=== PATIENT | male | born 1975 | race Caucasian/White ===

== ENCOUNTER 2016-12-28 12:06 | Emergency (ER) | payer OTHER ==
[~2016-12-28] VITALS: Ht 180.3 cm; Wt 84.9 kg
[2016-12-28 12:06] VITALS: BP 109/61
[~2016-12-28 12:06] MED LIST: /DULO30CA; GABA600T3; SERO200T
[2016-12-28] MEDS ORDERED: IBUP-1022 PO (12:17)
[2016-12-28] MEDS ORDERED: NEUR600T PO (12:27)
== END 2016-12-28 12:37 | disposition home or self-care (01) ==
LOC: M ED 12:06
DX: Z76.0 Encounter for issue of repeat prescription (principal); M54.5 Low back pain; Z72.0 Tobacco use

== ENCOUNTER → 2016-12-29 | Outpatient (CLI) | payer MEDICAID ==
[~2016-12-29] MED LIST changes: +IBUP-1022 PO; +NEUR600T PO
== END ==
LOC: M OUTALCOH 08:06
PROVIDERS: ATTEND Psychiatry & Neurology Psychiatry
DX: Z13.9 Encounter for screening, unspecified (principal); F12.20 Cannabis dependence, uncomplicated; F11.20 Opioid dependence, uncomplicated

== ENCOUNTER 2017-01-26 14:00 | Outpatient (RCR) | payer MEDICAID | END 2017-01-28 | LOC: M OUTALCOH 14:00 | PROVIDERS: ATTEND Psychiatry & Neurology Psychiatry | DX: F12.20 Cannabis dependence, uncomplicated (principal); F11.20 Opioid dependence, uncomplicated; F17.200 Nicotine dependence, unspecified, uncomplicated ==

== ENCOUNTER → 2017-01-27 | Outpatient (REF) | payer MEDICAID ==
[2017-02-01 16:08] LABS: MISCELLANEOUS TEST LAB See Separate Report
[2017-02-07 00:06] LABS: BENZODIAZEPINES, URINE SCREEN Negative ng/mL (Cutoff=200); METHADONE, URINE SCREEN Negative ng/mL (Cutoff=300); URINE NORBUPRENORPHINE Positive (.); URINE NORBUPRENORPHINE CONFIRM 58 ng/mL (Cutoff=10); pH, URINE 5.6 (4.5-8.9)
== END ==
LOC: M LAB REF 11:12
PROVIDERS: ATTEND Family Medicine Addiction Medicine
DX: F11.10 Opioid abuse, uncomplicated (principal)

== ENCOUNTER → 2017-02-03 | Outpatient (REF) | payer MEDICAID | LOC: M LAB REF 16:31 | PROVIDERS: ATTEND Family Medicine Addiction Medicine | DX: F11.10 Opioid abuse, uncomplicated (principal) ==

== ENCOUNTER → 2017-02-10 | Outpatient (REF) | payer MEDICAID ==
[2017-02-18 00:06] LABS: BENZODIAZEPINES, URINE SCREEN Negative ng/mL (Cutoff=200); METHADONE, URINE SCREEN Negative ng/mL (Cutoff=300); NALOXONE RESULT Positive (.); URINE NORBUPRENORPHINE Positive (.); URINE NORBUPRENORPHINE CONFIRM 80 ng/mL (Cutoff=10)
== END ==
LOC: M LAB REF 16:16
PROVIDERS: ATTEND Family Medicine Addiction Medicine
DX: F11.10 Opioid abuse, uncomplicated (principal)

== ENCOUNTER → 2017-03-10 | Outpatient (REF) | payer MEDICAID | LOC: M LAB REF 16:21 | PROVIDERS: ATTEND Family Medicine Addiction Medicine | DX: F11.10 Opioid abuse, uncomplicated (principal) ==

== ENCOUNTER → 2017-03-24 | Outpatient (REF) | payer MEDICAID | LOC: M LAB REF 16:39 | PROVIDERS: ATTEND Family Medicine Addiction Medicine | DX: F11.10 Opioid abuse, uncomplicated (principal) ==

== ENCOUNTER → 2017-04-07 | Outpatient (REF) | payer MEDICAID | LOC: M LAB REF 13:03 | PROVIDERS: ATTEND Family Medicine Addiction Medicine | DX: F11.10 Opioid abuse, uncomplicated (principal) ==

== ENCOUNTER → 2017-04-21 | Outpatient (REF) | payer MEDICAID | LOC: M LAB REF 16:53 | PROVIDERS: ATTEND Family Medicine Addiction Medicine | DX: F11.10 Opioid abuse, uncomplicated (principal) ==

== ENCOUNTER → 2017-05-03 | Outpatient (REF) | payer MEDICAID | LOC: M LAB REF 16:35 | DX: F11.10 Opioid abuse, uncomplicated (principal) | CPT/HCPCS: 80362 ==

== ENCOUNTER → 2017-05-17 | Outpatient (REF) | payer MEDICAID | LOC: M LAB REF 15:38 | DX: F11.10 Opioid abuse, uncomplicated (principal) ==

== ENCOUNTER → 2017-05-31 | Outpatient (REF) | payer MEDICAID | LOC: M LAB REF 16:45 | DX: F11.10 Opioid abuse, uncomplicated (principal) ==

== ENCOUNTER → 2017-06-14 | Outpatient (REF) | payer MEDICAID | LOC: M LAB REF 16:25 | DX: F11.10 Opioid abuse, uncomplicated (principal) ==

== ENCOUNTER → 2017-06-28 | Outpatient (REF) | payer MEDICAID | LOC: M LAB REF 19:34 | DX: F11.10 Opioid abuse, uncomplicated (principal) ==

== ENCOUNTER → 2017-07-12 | Outpatient (REF) | payer MEDICAID ==
[2017-07-19 08:40] LABS: AMPHETAMINE SCREEN, URINE Negative ng/mL (Cutoff=1000); BARBITURATES SCREEN, URINE Negative ng/mL (Cutoff=200); BENZODIAZEPINES, URINE SCREEN Negative ng/mL (Cutoff=200); CANNABINOID SCREEN, URINE See Final Results ng/mL (Cutoff=20); CANNABINOID, URINE Positive (Cutoff=20); CARBOXY THC (GC/MS) 24 ng/mL (Cutoff=10); COCAINE SCREEN, URINE Negative ng/mL (Cutoff=300); FENTANYL URINE SCREEN Negative pg/mL (Cutoff=2000); METHADONE, URINE SCREEN Negative ng/mL (Cutoff=300); NALOXONE RESULT Positive (.); OPIATE SCREEN, URINE Negative ng/mL (Cutoff=300); OXYCODONE, SCREEN, URINE Negative ng/mL (Cutoff=100); PCP SCREEN, URINE Negative ng/mL (Cutoff=25); SPECIFIC GRAVITY, URINE 1.018 (.); URINE BUPRENORPHINE Positive (.); URINE BUPRENORPHINE Positive (Cutoff=10); URINE BUPRENORPHINE See Final Results ng/mL (Cutoff=10); URINE BUPRENORPHINE CONFIRM 24 ng/mL (Cutoff=10); URINE NORBUPRENORPHINE Positive (.); URINE NORBUPRENORPHINE CONFIRM 24 ng/mL (Cutoff=10)
== END ==
LOC: M LAB REF 19:57
DX: F11.10 Opioid abuse, uncomplicated (principal)
CPT/HCPCS: 80362

== ENCOUNTER → 2017-07-26 | Outpatient (REF) | payer MEDICAID | LOC: M LAB REF 13:15 | DX: F11.10 Opioid abuse, uncomplicated (principal) ==

== ENCOUNTER → 2017-08-30 | Outpatient (REF) | payer MEDICAID | LOC: M LAB REF 12:42 | DX: F11.10 Opioid abuse, uncomplicated (principal) ==

== ENCOUNTER → 2017-09-10 | Outpatient (REF) | payer MEDICAID | LOC: M LAB REF 08:53 | DX: L02.811 Cutaneous abscess of head [any part, except face] (principal) ==

== ENCOUNTER → 2018-01-19 | Outpatient (REF) | payer MEDICAID | LOC: M LAB REF 13:11 | DX: B37.9 Candidiasis, unspecified (principal) ==

== ENCOUNTER 2021-05-20 12:22 | Emergency (ER) | payer MEDICAID ==
[~2021-05-20] VITALS: Ht 180.3 cm; Wt 102.1 kg
[~2021-05-20 12:22] MED LIST changes: -/DULO30CA; +CYMB1CAP5
[2021-05-20 12:23] VITALS: BP 117/63
[2021-05-20] MEDS ORDERED: SUBO12MI (12:52)
[2021-05-20] MEDS ORDERED: SUBO8MIS (12:52)
== END 2021-05-20 14:57 | disposition left against medical advice (07) ==
LOC: M ED 12:22
DX: Z53.21 Procedure and treatment not carried out due to patient leaving prior to being seen by health care provider (principal)

== ENCOUNTER → 2023-10-13 | Outpatient (REF) | payer MEDICAID ==
[~2023-10-13] MED LIST changes: +SUBO12MI; +SUBO8MIS
[2023-10-13 13:53] LABS: BASO # 0.1 10^3/uL (0.0-0.2); BASO % 0.8 % (0.0-1.0); EOS # 0.2 10^3/uL (0.0-0.5); EOS % 2.3 % (0.0-3.0); HEMATOCRIT 40.8 % (42.0-52.0); HEMOGLOBIN 13.4 g/dl (13.5-17.5); LYMPH # 3.3 10^3/uL (1.5-5.0); LYMPH % 41.9 % (24.0-44.0); MEAN CORPUSCULAR HEMOGLOBIN 30.9 pg (27.0-33.0); MEAN CORPUSCULAR HGB CONC 32.8 g/dl (32.0-36.5); MEAN CORPUSCULAR VOLUME 94.2 fl (80.0-96.0); MONO # 0.6 10^3/uL (0.0-0.8); MONO % 7.4 % (2.0-8.0); NEUTROPHILS # 3.8 10^3/uL (1.5-8.5); NEUTROPHILS % 47.5 % (36.0-66.0); PLATELET COUNT, AUTOMATED 211 10^3/uL (150-450); RED BLOOD COUNT 4.33 10^6/uL (4.30-6.10); WHITE BLOOD COUNT 7.9 10^3/uL (4.0-10.0)
[2023-10-13 13:57] LABS: ALBUMIN 3.8 G/DL (3.2-5.2); ALKALINE PHOSPHATASE 84 U/L (46-116); ALT/SGPT 24 U/L (7.0-40); AST/SGOT 19 U/L (<34); BILIRUBIN,TOTAL 0.3 MG/DL (0.3-1.2); BLOOD UREA NITROGEN 20 MG/DL (9-23); CALCIUM LEVEL 8.5 MG/DL (8.5-10.1); CARBON DIOXIDE LEVEL 31 MMOL/L (20-31); CHLORIDE LEVEL 105 MMOL/L (98-107); CREATININE FOR GFR 1.03 MG/DL (0.70-1.30); GLOMERULAR FILTRATION RATE > 60.0 (>60); GLUCOSE, FASTING 77 MG/DL (60-100); POTASSIUM SERUM 3.9 MMOL/L (3.5-5.1); SODIUM LEVEL 140 MMOL/L (136-145); TOTAL PROTEIN 6.4 G/DL (5.7-8.2)
[2023-10-13 13:58] LABS: THYROID STIMULATING HORMONE 4.157 uIU/ML (0.55-4.78)
[2023-10-13 13:59] LABS: FOLATE 9.8 NG/ML (>5.4); FREE T4 1.04 NG/DL (0.89-1.76); VITAMIN B12 LEVEL 312 PG/ML (211-911)
== END ==
LOC: M LAB REF 12:29
PROVIDERS: ATTEND Family Medicine Addiction Medicine
DX: R20.2 Paresthesia of skin (principal)

== ENCOUNTER → 2024-06-19 | Outpatient (CLI) | payer MEDICAID, OTHER | LOC: M RAD 15:41 | PROVIDERS: ATTEND Family Medicine Addiction Medicine | DX: M54.9 Dorsalgia, unspecified (principal); Q76.0 Spina bifida occulta; M47.816 Spondylosis without myelopathy or radiculopathy, lumbar region ==

== ENCOUNTER 2025-02-20 00:20 | Emergency (ER) | payer OTHER ==
[~2025-02-20] VITALS: Ht 180.3 cm; Wt 84.1 kg
[~2025-02-20 00:20] MED LIST changes: -IBUP-1022 PO; +IBUP600T42 PO
[2025-02-20 01:05] LABS: BASO # 0.1 10^3/uL (0.0-0.2); BASO % 0.8 % (0.0-1.0); EOS # 0.2 10^3/uL (0.0-0.5); EOS % 2.2 % (0.0-3.0); LYMPH # 3.1 10^3/uL (1.5-5.0); LYMPH % 34.3 % (24.0-44.0); MONO # 0.6 10^3/uL (0.0-0.8); MONO % 6.7 % (2.0-8.0); NEUTROPHILS # 5.0 10^3/uL (1.5-8.5); NEUTROPHILS % 55.8 % (36.0-66.0); PLATELET COUNT, AUTOMATED 222 10^3/uL (150-450)
[2025-02-20 01:39] LABS: C REACTIVE PROTEIN QUANTITATIV < 0.50 MG/DL (<1.0)
[2025-02-20 01:40] LABS: ALT/SGPT 22 U/L (7.0-40); AST/SGOT 26 U/L (<34); CALCIUM LEVEL 8.5 MG/DL (8.5-10.1); CARBON DIOXIDE LEVEL 28 MMOL/L (20-31); CHLORIDE LEVEL 109 MMOL/L (98-107); CREATININE FOR GFR 0.77 MG/DL (0.70-1.30); GLOMERULAR FILTRATION RATE > 90.0 (>60); POTASSIUM SERUM 3.9 MMOL/L (3.5-5.1); SODIUM LEVEL 143 MMOL/L (136-145)
[2025-02-20 02:54] VITALS: BP 112/63; TEMP 98.2; O2SAT 99
[2025-02-21] MEDS ORDERED: PRED10TA2 PO (20:47)
== END 2025-02-20 05:50 | disposition left against medical advice (07) ==
LOC: M ED 00:20
DX: Z53.21 Procedure and treatment not carried out due to patient leaving prior to being seen by health care provider (principal)

== ENCOUNTER 2025-02-21 16:17 | Emergency (ER) | payer OTHER ==
[~2025-02-21] VITALS: Ht 180.3 cm; Wt 83.9 kg
[2025-02-21] MEDS ORDERED: PRED10TA2 PO (20:47)
[2025-02-21] MEDS: predniSONE 20 MG TAB PO ONE (20:50)
[2025-02-21 20:54] VITALS: BP 131/79; TEMP 96.9; O2SAT 99
== END 2025-02-21 20:56 | disposition home or self-care (01) ==
LOC: M ED 16:17
DX: S83.92XA Sprain of unspecified site of left knee, initial encounter (principal); X58.XXXA Exposure to other specified factors, initial encounter; Y92.009 Unspecified place in unspecified non-institutional (private) residence as the place of occurrence of the external cause; Y93.9 Activity, unspecified; Y99.9 Unspecified external cause status; R56.9 Unspecified convulsions; F17.200 Nicotine dependence, unspecified, uncomplicated; Z79.899 Other long term (current) drug therapy; Z91.018 Allergy to other foods
CPT/HCPCS: 99284; J7512